=== PATIENT | male | born 1965 | race Caucasian/White ===

== ENCOUNTER 2017-12-20 13:06 | Observation (INO) | payer SELFPAY ==
[~2017-12-20] VITALS: Ht 177.8 cm; Wt 75.9 kg
[~2017-12-20 13:06] MED LIST: BACT400T PO
[2017-12-20] MEDS ORDERED: ACETAMINOPHEN 500 MG CPLT PO PRN (16:30)
[2017-12-20] MEDS ORDERED: SODIUM CHLORIDE 0.9% FLUSH 10 ML FLUSH IV FLUSH PRN (16:30)
[2017-12-20] MEDS ORDERED: NITROGLYCERIN 0.4 MG SL 25 TABS/BTL SL PRN (16:30)
[2017-12-20 16:44] VITALS: BP 168/90; PULSE 76; RESP 20; TEMP 98.2; O2SAT 96
--- NOTE | 2017-12-20 17:24 | HHI.HP ---
HPI Primary Care Physician None Chief Complaint Chest pain History of Present Illness 52 year old male with history of 2.5-3 pack/daily smoker presents to ER for further evaluation of chest pain. Onset one week. Location left inframammary area and left upper quadrat. Characterized as intermittent sharp, stabbing pain. No radiation of pain. Duration 1-5 minutes. Pain comes on quickly and resolves quickly. Increasing in frequency, 3-4 episodes hourly since waking this morning. Moderate in severity. No precipitating factors. Relieving factors morphine given in ER. No recent injury or trauma. Frequent coughing therefore decided to quit smoking 2 weeks ago. Taking a deep breath makes pain worse. No particular movement or position makes pain better or worse. Discomfort easily reproduced with palpation. Denies similar pain in the past. Not seen a PCP for nearly 8 years. Review of Systems General: No fatigue, weakness, fever, chills, or recent illness. Has been in his general state of health. HEENT: No ARENAS, no vision changes, no nasal congestion or drainage, no dysphasia CV: As stated above, reports "chest pain" however points to left inframammary and left upper quadrat. RESP: No SOB, wheeze, hemoptysis, or history of asthma. Lifelong smoker, recently quit smoking due to chronic coughing. GI: No nausea, vomiting, or bowel changes. No unintentional weight gain or weight loss. : No dysuria, urgency, frequency EXT: No lower leg edema, no paraesthesias MS: No discomfort, injury, or change in ROM NEURO: No change in memory, difficulty with balance, LOC, motor/sensory deficits PSYCH: No anxiety, depression, or suicidal ideation SKIN: No rashes, no concerning lesions Past Family Social History Allergies: Coded Allergies: No Known Allergies (Unverified , 12/20/17) Past Medical History None Past Surgical History Left shoulder repair with pins Reported Medications Reported Meds & Active Scripts Active No Active Prescriptions or Reported Medications Active Ordered Medications Current Medications Medications (Trade) Dose Ordered Sig/Robert Route Start Time Stop Time Status Last Admin (NS Flush) 2 ml UNSCH PRN IV FLUSH 12/20/17 16:30 (NS Flush) 2 ml BID IV FLUSH 12/20/17 21:00 (Tylenol) 500 mg Q4H PRN PO 12/20/17 16:30 (Nitrostat Sl) 0.4 mg Q5M PRN SL 12/20/17 16:30 (Aspirin) 325 mg DAILY PO 12/21/17 09:00 Family History Father age 52 stating father smoked 5 packs/cigarettes daily and was an alcoholic. Social History No known coronary artery disease, hypertension, diabetes, or hyperlipidemia. Patient does not follow with a PCP nor does he know his lipid panel. Recently quit smoking 2 weeks ago. 2.5-3 pack/daily. Drinks alcohol twice weekly , a few beers. Denies any illegal drug use. Works as a [employer]. Past cardiac testing Remote treadmill cardiac testing reported to be unremarkable. Physical Exam Vital Signs Vital Signs Date Time Temp Pulse Resp B/P (MAP) Pulse Ox O2 Delivery O2 Flow Rate FiO2 12/20/17 16:44 98.2 76 20 168/90 (116) 96 Physical Exam GENERAL: Alert WN, WD, NAD, pleasant, male who appears older than stated age. HEAD: NC, AT NECK: Supple, no masses, trachea midline CV: RRR, 2/6 diastolic murmur, no rub, no gallop, no JVD, S1-S2 no S3-S4. No carotid bruits. RESP: Diminished lungs throughout, no crackles, wheeze, or rhonchi, symmetrical chest rise, nonlabored, able to speak in full sentences ABD: Soft, ND, no masses, positive bowel tones, left inframammary and left upper quadrat tender and pain reproduced with light palpation EXT: Pulses +2x4, no dependent edema MS: Normal tone x4 extremities, nontender, no obvious deformities, full range of motion NEURO: CN II through CN XII grossly intact, motor strength 5/5 PSYCH: A+O x3, flat affect, appropriate speech, appropriate, insight and judgment SKIN: Normal turgor, normal texture, no lesions, no rashes, brisk cap refill, even hair distribution, solar damage Imaging [facility] xray completed in [facility]. Read by radiologist as no acute disease. Course EKG Normal sinus rhythm, left axis, criteria for LVH, no ST changes, T-wave inversions lead III and aVF Caprini VTE Risk Assessment Caprini VTE Risk Assessment: No/Low Risk (score <= 1) Caprini Risk Assessment Model Point Value = 1 Point Value = 2 Point Value = 3 Point Value = 5 Age 41-60 Minor surgery BMI > 25 kg/m2 Swollen legs Varicose veins or History of unexplained or recurrent spontaneous Oral contraceptives or hormone replacement Sepsis (< 1 month) Serious lung disease, including pneumonia (< 1 month) Abnormal pulmonary function Acute myocardial infarction Congestive heart failure (< 1 month) History of inflammatory bowel disease Medical patient at bed rest Age 61-74 Arthroscopic surgery Major open surgery (> 45 min) Laparoscopic surgery (> 45 min) Malignancy Confined to bed (> 72 hours) Immobilizing plaster cast Central venous access Age >= 75 History of VTE Family history of VTE Factor V Leiden Prothrombin [id number] Lupus anticoagulant Anticardiolipin antibodies Elevated serum homocysteine Heparin-induced thrombocytopenia Other congenital or acquired thrombophilia Stroke (< 1 month) Elective arthroplasty Hip, pelvis, or leg fracture Acute spinal cord injury (< 1 month) Prophylaxis Regimen Total Risk Factor Score Risk Level Prophylaxis Regimen 0-1 Low Early ambulation 2 Moderate Order ONE of the following: *Sequential Compression Device (SCD) *Heparin 5000 units SQ BID 3-4 Higher Order ONE of the following medications: *Heparin 5000 units SQ TID *Enoxaparin/Lovenox 40 mg SQ daily (WT < 150 kg, CrCl > 30 mL/min) *Enoxaparin/Lovenox 30 mg SQ daily (WT < 150 kg, CrCl > 10-29 mL/min) *Enoxaparin/Lovenox 30 mg SQ BID (WT < 150 kg, CrCl > 30 mL/min) AND/OR *Sequential Compression Device (SCD) 5 or more Highest Order ONE of the following medications: *Heparin 5000 units SQ TID (Preferred with Epidurals) *Enoxaparin/Lovenox 40 mg SQ daily (WT < 150 kg, CrCl > 30 mL/min) *Enoxaparin/Lovenox 30 mg SQ daily (WT < 150 kg, CrCl > 10-29 mL/min) *Enoxaparin/Lovenox 30 mg SQ BID (WT < 150 kg, CrCl > 30 mL/min) AND *Sequential Compression Device (SCD) Assessment and Plan Assessment and Plan Musculoskeletal pain-admitted to chest pain center. Begin ruling out ACS with 3 sets of EKGs and cardiac enzymes. Will be seen and evaluated by Dr. Vinay Messer. First 2 troponin negative. Risks factors of heart disease include age and smoking history, lipid panel unknown. Resenting symptoms easily reproduced , Toradol 30 mg IV 2 doses. Morphine 2 mg every 6 hours as needed for pain. Will reevaluate in a.m. If ruled ACS ruled out not unreasonable to complete cardiac testing in morning. This will be determined after evaluation by neurodiagnostic tech. Tobacco use-strongly encouraged to continue his efforts on smoking cessation. Rae Merritt Dec 20, 2017 17:24
[2017-12-20] MEDS ORDERED: KETOROLAC TROMETHAMINE 30 MG/ML (IVP) VIAL IV PUSH ONE (17:45)
[2017-12-20] MEDS ORDERED: MORPHINE SULFATE 4 MG/ML INJ IV PUSH PRN (17:45)
[2017-12-20 19:34] VITALS: PULSE 58
[2017-12-20] MEDS: SODIUM CHLORIDE 0.9% FLUSH 10 ML FLUSH IV FLUSH SCH (19:58)
[2017-12-20 20:50] VITALS: BP 158/77; PULSE 64; RESP 18; TEMP 98.2; O2SAT 96
[2017-12-20 23:32] VITALS: BP 161/80; PULSE 54; RESP 18; TEMP 98.2; O2SAT 98
[2017-12-21 00:55] VITALS: PULSE 57
[2017-12-21 03:29] VITALS: BP 159/78; PULSE 58; RESP 17; TEMP 98; O2SAT 98
[2017-12-21] MEDS ORDERED: KETOROLAC TROMETHAMINE 30 MG/ML (IVP) VIAL IV PUSH ONE (04:00)
[2017-12-21] MEDS ORDERED: amLODIPine BESYLATE 5 MG TAB PO ONE (07:30)
[2017-12-21 07:39] VITALS: O2SAT 98
--- NOTE | 2017-12-21 08:05 | PD.CARD.PN ---
Subjective Subjective Remarks 52-year-old gentleman who presents with 1 week of cough and chest pain both occurring simultaneously Friday a week ago. The pain began with coughing is described as a sharp stabbing left chest pain which was worth worse with cough and inspiration. Otherwise as described in the history and physical. 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 he did stop smoking recently has been a heavy to 2 and half pack a day smoker prior to that time. In 2009 he had a heart catheterization in [place] which apparently proved to be unremarkable. He does not remember now why he had. Patient was discussed with nurse practitioner medical records were reviewed laboratory and radiographic data was also reviewed. The patient was seen personally and examined personally. Objective Medications Current Medications Medications (Trade) Dose Ordered Sig/Robert Route Start Time Stop Time Status Last Admin (NS Flush) 2 ml UNSCH PRN IV FLUSH 12/20/17 16:30 12/21/17 03:35 (NS Flush) 2 ml BID IV FLUSH 12/20/17 21:00 12/20/17 19:58 (Tylenol) 500 mg Q4H PRN PO 12/20/17 16:30 (Nitrostat Sl) 0.4 mg Q5M PRN SL 12/20/17 16:30 (Aspirin) 325 mg DAILY PO 12/21/17 09:00 (Morphine Inj) 2 mg Q6H PRN IV PUSH 12/20/17 17:45 Vital Signs / I&O Vital Signs Date Time Temp Pulse Resp B/P (MAP) Pulse Ox O2 Delivery O2 Flow Rate FiO2 12/21/17 03:29 98.0 58 17 159/78 (105) 98 12/21/17 00:55 57 12/21/17 00:46 21 12/20/17 23:32 98.2 54 18 161/80 (107) 98 12/20/17 20:50 98.2 64 18 158/77 (104) 96 12/20/17 19:34 58 12/20/17 16:44 98.2 76 20 168/90 (116) 96 I/O 12/20/17 12/20/17 12/20/17 12/21/17 12/21/17 12/21/17 07:00 15:00 23:00 07:00 15:00 23:00 Intake Total 240 ml Balance 240 ml Intake Oral 240 ml # Voids 1 Physical Exam Physical exam is as recorded with these personal additions Exquisitely tender over the left chest wall Cardiovascular reveals a grade 1 diastolic heart murmur Laboratory Laboratory Tests Test 12/20/17 17:40 Troponin I LESS THAN 0.02 NG/ML Imaging Negative chest x-ray Mild spinal disease Assessment and Plan Assessment and Plan Patient's current pain is pleuritic clearly not cardiac. However he does have risk factors and we will continue with exercise stress test soon as he rules out to complete the chest pain center protocol. Code Status Full code Discussed Condition With Discussed with nurse practitioner and with the patient Vinay Messer MD Dec 21, 2017 08:05
[2017-12-21] MEDS: SODIUM CHLORIDE 0.9% FLUSH 10 ML FLUSH IV FLUSH SCH (08:31)
[2017-12-21] MEDS ORDERED: ASPIRIN 325 MG TAB PO SCH (09:00)
[2017-12-21] MEDS ORDERED: REGADENOSON INJ 0.4 MG/5 ML SYR IV ONE (15:06)
[2017-12-21 16:19] VITALS: BP 134/68; PULSE 70; RESP 20; TEMP 98.2; O2SAT 98
--- NOTE | 2017-12-21 16:33 | RADRPT ---
EXAM DATE: 12/21/2017 4:26 PM EDT AGE/SEX: 52 years / Male INDICATIONS:Angina. . Chest pain. CLINICAL DATA: This is the patient's initial encounter. Patient reports that signs and symptoms have been present for 1 day and indicates a pain score of 0/10. MEDICAL/SURGICAL HISTORY: . Smoker. None. COMPARISON: No prior exams available for comparison. DOSE: 8.5 mCi Tc 99m Myoview at rest 27.2 mCi [id number] at stress 0.4 mg Lexiscan STRESS SYMPTOMS: Weird feeling and headache. EJECTION FRACTION: 40 % TECHNIQUE: The patient underwent pharmacologic stress with infusion of prescribed dose. Continuous ECG tracing was monitored during stress. Gated SPECT imaging was performed after stress and conventi onal SPECT imaging was performed at rest. The examination was performed on a SPECT/CT scanner, both attenuation and non-corrected datasets were reviewed. FINDINGS: Distribution: The maximum perfused segment at stress is in the lateral wall. Perfusion Study: There is intact perfusion to the left ventricle with regional variations of perfus ion within 30%. Left ventricular cavity, however, is markedly dilated on both stress and rest study. No evidence of redistribution. Gated Study: There is global hypokinesia. Very little wall motion is discernible in the inferior and apical segments. The ejection fraction is calculated at 40%. RISK CATEGORY: Intermediate (1-3 % Annual Mortality Rate) CONCLUSION: 1. No reversible perfusion defects seen and no evidence of stress-induced ischemia.. 2. Left ventricular cavity is dilated on both stress and rest images and there is depressed ejection fraction of 40%. The findings suggest cardiomyopathy. Electronically signed by: Temo Lr MD 12/21/2017 4:32 PM EDT
[2017-12-21] MEDS ORDERED: LISI10TA3 PO (16:37)
--- NOTE | 2017-12-21 16:37 | HHI.DCPOC ---
Discharge Care Plan Diagnosis: (1) Musculoskeletal chest pain (2) Tobacco abuse (3) Hypertension (4) Decreased cardiac ejection fraction Goals to Promote Your Health * To prevent worsening of your condition and complications * To maintain your health at the optimal level Directions to Meet Your Goals Take your medications as prescribed Follow your dietary instruction Follow activity as directed Keep your appointments as scheduled Take your immunizations and boosters as scheduled If your symptoms worsen call your PCP, if no PCP go to Urgent Care Center or Emergency Room Smoking is Dangerous to Your Health. Avoid second hand smoke Call the 24-hour hour crisis hotline for domestic abuse at Rae Merritt Dec 21, 2017 16:37
[2017-12-22 03:41] VITALS: BP 162/82; PULSE 80; RESP 20; TEMP 98; O2SAT 94
--- NOTE | 2017-12-22 15:32 | EKG ---
Date Performed: 12/20/2017 Time Performed: 17:24:02 PTAGE: 52 years EKG: Sinus rhythm INTRAVENTRICULAR CONDUCTION DELAY POSSIBLE LEFT VENTRICULAR HYPERTROPHY ABNORMAL ECG NO PREVIOUS TRACING DOCTOR: Sukhdev Rodriguez Interpretating Date/Time 12/22/2017 15:31:25
--- NOTE | 2017-12-22 15:38 | TR ---
Date Performed: 12/21/2017 Time Performed: 15:13:51 DOCTOR: Sukhdev Rodriguez DRUG LIST: CLINICAL HISTORY: REASON FOR TEST: REASON FOR ENDING: OBSERVATION: CONCLUSION: COMMENTS: Lexiscan stress test was performed under standard four minute protocol. Radionuclide was injected one minute prior to ending the test. No electrocardiographic abormalities were present t o suggest ischemia. Nuclear imaging and interpretation are pending.
== END 2017-12-21 20:05 | disposition home or self-care (01) ==
LOC: NEDDLT 13:06 → NEPHCDU 16:26
PROVIDERS: ADMIT Internal Medicine Interventional Cardiology; ATTEND Internal Medicine Interventional Cardiology
DX: R07.89 Other chest pain (principal); I10 Essential (primary) hypertension; R05 Cough; M79.1 Myalgia; Z72.0 Tobacco use; R94.31 Abnormal electrocardiogram [ECG] [EKG]
CPT/HCPCS: 78452; 84484; 93005; 93017; 96374; 96376; A9502; G0378; J1885; J2785; 71045; 80053; 82550; 82552; 83690; 83880; 85025; 85379; J2270